=== PATIENT | female | born 1955 | race Caucasian/White ===

== ENCOUNTER 2017-07-17 13:06 | Outpatient (CLI) | payer BC ==
--- NOTE | 2017-07-17 15:11 | RAD ---
RADIOGRAPH CHEST 2 VIEWS: HISTORY: 62-year-old female with bronchitis and persistent cough. FINDINGS: The thoracic aorta is tortuous and ectatic. There is no evidence of air space density, pneumothorax, or pulmonary edema. There is no cardiomegaly or pleural effusion. IMPRESSION: 1) No acute cardiopulmonary findings. 2) Ectasia of thoracic aorta. gino POS: [facility]
== END 2017-07-17 13:07 | disposition home or self-care (01) ==
LOC: SCSRAD 13:06
PROVIDERS: ATTEND Nurse Practitioner Family
DX: J40 Bronchitis, not specified as acute or chronic (principal); I77.810 Thoracic aortic ectasia
CPT/HCPCS: 71046

== ENCOUNTER 2020-09-01 15:01 | Outpatient (CLI) | payer BC ==
[2020-09-01 16:38] LABS: #Basophils 0.1 10x3/uL (0.0-0.2); #Eosinphils 0.2 10x3/uL (0.0-0.5); #Monocytes 0.5 10x3/uL (0.0-1.1); #Neutrophils 4.1 10x3/uL (1.5-8.4); %Basophils 0.8 % (0.0-2.0); %Lymphocytes 35.8 % (18.0-47.0); %Monocytes 6.8 % (0.0-10.0); %Neutrophils 54.2 % (40.0-75.0); Hemoglobin 12.2 g/dL (12.0-15.5); Mean Corpuscular HGB CONC 31.8 g/dL (32.0-36.0); Mean Corpuscular Hemoglobin 28.1 pg (27.0-33.0); Mean Corpuscular Volume 88.5 fl (81.6-98.3); Mean Platelet Volume 11.2 fl (7.4-10.4); Platelet Count 310 10x3/uL (150-450); RBC Distribution Width 14.6 % (11.5-14.5); Red Blood Cell (RBC) Count 4.34 10x6/uL (3.90-5.03); White Blood Cell (WBC) Count 7.5 10x3/uL (3.5-10.5)
[2020-09-01 16:53] LABS: Anion Gap 13 mmol/L (10-20); BUN (Urea Nitrogen) 14 mg/dL (9.8-20.1); Calc. Creatinine Clearance 0 mL/min (70-130); Calcium 9.3 mg/dL (7.8-10.44); Carbon Dioxide 29 mmol/L (23-31); Chloride 104 mmol/L (98-107); Glucose 102 mg/dL (80-115); Sodium 142 mmol/L (136-145)
[2020-09-02 05:36] LABS: SARS-CoV-2 PCR by NAA Not Detected (NotDetected)
== END 2020-09-01 15:02 | disposition home or self-care (01) ==
LOC: LABBT 15:01
PROVIDERS: ATTEND Surgery
DX: Z01.812 Encounter for preprocedural laboratory examination (principal); C44.509 Unspecified malignant neoplasm of skin of other part of trunk; Z20.822 Contact with and (suspected) exposure to COVID-19
CPT/HCPCS: 80048; 85025; 87635; U0003; U0005

== ENCOUNTER 2020-09-04 05:51 | Day surgery (SDC) | payer BC ==
[2020-09-03 08:57] VITALS: BMI 31.4
[2020-09-04] MEDS ORDERED: Lidocaine 1% w/Epinephrine 1:100K 20 ML VIAL ONE (06:24)
[2020-09-04] MEDS ORDERED: Bupivacaine PF 0.5% 30 ML VIAL ONE (06:24)
[2020-09-04] MEDS ORDERED: Fentanyl 100 MCG/2 ML VIAL ONE (06:44)
[2020-09-04] MEDS ORDERED: Glycopyrrolate 0.2 MG/ML 5 ML SYRINGE ONE (07:14)
[2020-09-04] MEDS ORDERED: Ondansetron PF 4 MG/2 ML Vial ONE (07:14)
[2020-09-04] MEDS ORDERED: Rocuronium Bromide 10 MG/ML (10ML VIAL) ONE (07:14)
[2020-09-04] MEDS ORDERED: Dexamethasone 20 MG/5 ML VIAL ONE (07:14)
[2020-09-04] MEDS ORDERED: PROPOFOL 200 MG/20 ML VIAL ONE (07:14)
[2020-09-04] MEDS ORDERED: ePHEDrine 50 MG/ML VIAL ONE (07:14)
[2020-09-04] MEDS ORDERED: Lidocaine 1% PF 5 ML VIAL ONE (07:14)
== END 2020-09-04 10:00 | disposition home or self-care (01) ==
LOC: SDC 05:51
PROVIDERS: ATTEND Surgery
PROC: 0HB6XZZ Excision of Back Skin, External Approach (ICD-10-PCS; principal; 2020-09-04)
DX: C44.519 Basal cell carcinoma of skin of other part of trunk (principal); L90.5 Scar conditions and fibrosis of skin; L08.9 Local infection of the skin and subcutaneous tissue, unspecified; Z79.899 Other long term (current) drug therapy
CPT/HCPCS: 88305; 88331; 88332; J0690; J1100; J2405; J2704; J3010; J3490; S0020

== ENCOUNTER 2023-08-10 09:12 | Outpatient (CLI) | payer BC, MEDICARE | END 2023-08-10 09:13 | disposition home or self-care (01) | LOC: BICMAMMO 09:12 | PROVIDERS: ATTEND Family Medicine | DX: Z12.31 Encounter for screening mammogram for malignant neoplasm of breast (principal); Z13.820 Encounter for screening for osteoporosis; M81.0 Age-related osteoporosis without current pathological fracture; M85.851 Other specified disorders of bone density and structure, right thigh; M85.852 Other specified disorders of bone density and structure, left thigh; Z78.0 Asymptomatic menopausal state; Z80.3 Family history of malignant neoplasm of breast | CPT/HCPCS: 77063; 77067; 77080 ==